=== PATIENT | female | born 1930 | race Caucasian/White ===

== ENCOUNTER → 2016-09-26 | Outpatient (REF) | payer MEDICARE ==
[~2016-09-26] MED LIST: ATN50T PO; BUSP10TA95 PO; CALC-140 PO; CYAN1TAB50 SL; DIAZ2TAB2 PO; DOCU100C8 PO; FERR325T24 PO; LOVA20TA2 PO; NF-LISIN40 PO; NORT25CA PO; PANT40TA3 PO; POTA10TA10 PO; [UNRECOGNIZED DRUG - OTHER]
[2016-09-26 14:35] LABS: BASOPHILS % (AUTO) 0 % (0-2); EOSINOPHILS # (AUTO) 0.3 10^3uL; EOSINOPHILS % (AUTO) 4 % (0-4); LYMPHOCYTES # (AUTO) 1.1 X10^3; MEAN CORPUSCULAR HEMOGLOBIN 30.1 PG (26.0-34.0); MEAN CORPUSCULAR HGB CONC 32.9 g/dL (31.0-37.0); MEAN CORPUSCULAR VOLUME 92 FL (80-100); MEAN PLATELET VOLUME 10.5 FL (6.0-9.5); MONOCYTES # (AUTO) 0.9 X10^3; MONOCYTES % (AUTO) 13 % (3-11); NEUTROPHILS # (AUTO) 4.6 X10^3; NEUTROPHILS % (AUTO) 67 % (51-67); PLATELET COUNT 206 10^3uL (150-450); WHITE BLOOD COUNT 6.86 10^3uL (4.0-11.0)
[2016-09-26 14:42] LABS: ANION GAP 18.4 MEQ/L (3-15)
== END ==
LOC: LAB 13:58
PROVIDERS: ATTEND Family Medicine
DX: D64.89 Other specified anemias (principal); I10 Essential (primary) hypertension; E87.1 Hypo-osmolality and hyponatremia; M62.81 Muscle weakness (generalized)
CPT/HCPCS: 80048; 85025